=== PATIENT | male | born 1980 | race Caucasian/White ===

== ENCOUNTER 2018-05-09 11:39 | Emergency (ER) | payer SELFPAY ==
[~2018-05-09] VITALS: Ht 170.2 cm; Wt 86.0 kg
[2018-05-09] MEDS ORDERED: FENTANYL CITRATE/PF 50MCG/ML 2ML VIAL IV ONE (12:15)
[2018-05-09] MEDS ORDERED: LIDOCAINE HCL/EPINEPHRINE 1%-EPI 1:100,000 20 ML VIAL INFIL ONE (12:15)
[2018-05-09] MEDS ORDERED: BACITRACIN ZINC OINT UDPKT TOP ONE (16:30)
[2018-05-09 16:48] VITALS: BP 128/78
== END 2018-05-09 16:50 | disposition home or self-care (01) ==
LOC: ER 11:39
DX: S62.633A Displaced fracture of distal phalanx of left middle finger, initial encounter for closed fracture (principal); S61.112A Laceration without foreign body of left thumb with damage to nail, initial encounter; S61.313A Laceration without foreign body of left middle finger with damage to nail, initial encounter; Z90.89 Acquired absence of other organs; W45.8XXA Other foreign body or object entering through skin, initial encounter; Y93.89 Activity, other specified; Y92.89 Other specified places as the place of occurrence of the external cause; Y99.8 Other external cause status
CPT/HCPCS: 12002; 73130; 96374; 99284; J3010; J3490; Z7610

== ENCOUNTER 2018-05-12 07:08 | Emergency (ER) | payer SELFPAY ==
[~2018-05-12] VITALS: Ht 172.7 cm; Wt 85.0 kg
[2018-05-12 07:29] VITALS: BP 123/78
== END 2018-05-12 08:24 | disposition home or self-care (01) ==
LOC: ER 07:24
DX: S61.012D Laceration without foreign body of left thumb without damage to nail, subsequent encounter (principal); S61.213D Laceration without foreign body of left middle finger without damage to nail, subsequent encounter; X58.XXXD Exposure to other specified factors, subsequent encounter; Z90.49 Acquired absence of other specified parts of digestive tract
CPT/HCPCS: 99282; X7700